=== PATIENT | female | born 1950 | race Caucasian/White ===

== ENCOUNTER 2018-06-01 10:35 | Day surgery (SDC) | payer OTHER, BC ==
[~2018-06-01] VITALS: Ht 170.2 cm; Wt 92.1 kg
[~2018-06-01 10:35] MED LIST: ACETAMINOPHEN500 MG PO; CALTRATE 600 +1 EAC1 PO; COUMADIN,JANTOV10 MG PO; CRESTOR40 MG PO; FLOMAX0.4 MG PO; FOLIC ACID1 MG PO; LEXAPRO20 MG PO; LOPRESSOR50 MG PO; LORAZEPAM0.5 MG PO; LOVENOX100 MG/1 M SC; NEURONTIN300 MG PO; NEXIUM40 MG PO; SIMVASTATIN80 MG PO; TOPAMAX100 MG PO; TOPROL XL50 MG PO; TRICOR145 MG PO; WARFARIN SODIU7.5 MG PO; ZYRTEC10 M3 PO
[2018-06-01 11:18] VITALS: BP 146/68
[2018-06-01 11:35] LABS: INTER. NORMALIZED RATIO 3.5
[2018-06-01 11:37] LABS: PTT 41.4 SEC (25-37)
[2018-06-01 14:15] VITALS: BP 177/76
[2018-06-01 14:33] VITALS: BP 170/67
== END 2018-06-01 14:40 | disposition home or self-care (01) ==
LOC: SDC 10:35
PROVIDERS: Urology
PROC: 0T768DZ Dilation of Right Ureter with Intraluminal Device, Via Natural or Artificial Opening Endoscopic (ICD-10-PCS; principal; 2018-06-01)
DX: N20.2 Calculus of kidney with calculus of ureter (principal); Q62.10 Congenital occlusion of ureter, unspecified; N81.10 Cystocele, unspecified; Z87.440 Personal history of urinary (tract) infections; D68.59 Other primary thrombophilia; Z86.718 Personal history of other venous thrombosis and embolism; Z79.01 Long term (current) use of anticoagulants; Z90.49 Acquired absence of other specified parts of digestive tract; Z82.49 Family history of ischemic heart disease and other diseases of the circulatory system; Z83.3 Family history of diabetes mellitus; Z86.19 Personal history of other infectious and parasitic diseases
CPT/HCPCS: 85610; 85730; 93005; C1726; C1769; J0690; J1100; J2250; J2405; J3010